=== PATIENT | male | born 1945 | race Caucasian/White ===

== ENCOUNTER → 2018-10-28 12:21 | Outpatient (CLI) | payer MEDICARE, OTHER | END | disposition home or self-care (01) | LOC: D.US 12:21 | PROVIDERS: ATTEND Internal Medicine Cardiovascular Disease | DX: I65.23 Occlusion and stenosis of bilateral carotid arteries (principal) ==

== ENCOUNTER 2018-11-08 07:04 | Inpatient (IN) | payer MEDICARE, OTHER ==
[2018-11-08] VITALS (38 sets, daily range): BP systolic 95–148; BP diastolic 45–79; BMI 32.3
[~2018-11-08] VITALS: Ht 177.8 cm; Wt 91.6 kg
[2018-11-08 07:39] LABS: INR 1.05 (0.85-1.17); PROTIME 13.2 SECONDS (11.6-15.0)
[2018-11-08 07:40] LABS: APTT 28.6 SECONDS (22.8-39.4)
[2018-11-08 07:42] LABS: HEMATOCRIT 43.1 % (42.0-54.0); HEMOGLOBIN 13.8 g/dL (13.5-17.5); MCH 27.8 pg (26.0-34.0); MCV 86.7 fL (80.0-100.0); MEAN PLATELET VOLUME 9.4 fL (7.4-10.4); RBC 4.97 10x6/uL (4.20-6.10); RDW 15.3 % (11.5-14.5); WBC 9.5 10x3/uL (4.8-10.8)
[2018-11-08 07:46] LABS: ALBUMIN 3.6 g/dL (3.4-5.0); ANION GAP 9.2 mmol/L (8-16); BILIRUBIN - TOTAL 0.43 mg/dL (0.2-1.3); CALCIUM 8.3 mg/dL (8.5-10.1); CARBON DIOXIDE 30.8 mmol/L (21.0-32.0); CREATININE - SERUM 1.3 mg/dL (0.6-1.3); PROTEIN - SERUM 6.6 g/dL (6.4-8.2)
[2018-11-08] MEDS ORDERED: NORVASC10 MG PO (07:59)
[2018-11-08] MEDS ORDERED: LISINOPRIL-HCT1 EAC8 PO (07:59)
[2018-11-08] MEDS ORDERED: PLAVIX75 MG PO (08:00)
[2018-11-08] MEDS ORDERED: LIPITOR80 MG PO (08:00)
[2018-11-08] MEDS ORDERED: AMBIEN10 MG PO (08:00)
[2018-11-08 08:37] LABS: APPEARANCE CLEAR (CLEAR); BACTERIA FEW /hpf (NONE SEEN); BILIRUBIN NEGATIVE (NEGATIVE); COLOR YELLOW (YELLOW); EPITHELIAL CELLS 0-5 /hpf (0-5); GLUCOSE NEGATIVE (NEGATIVE); KETONE NEGATIVE (NEGATIVE); NITRITE NEGATIVE (NEGATIVE); PROTEIN NEGATIVE (NEGATIVE); RED CELLS - URINE RARE /hpf (0-5); SPECIFIC GRAVITY 1.015 (1.005-1.020); UROBILINOGEN NORMAL (NORMAL); WHITE CELLS - URINE 0-5 /hpf (0-5)
[2018-11-08 08:38] LABS: MUCUS <1+ /lpf (NONE SEEN)
--- NOTE | 2018-11-08 14:09 | NUR ---
1343-REC'D TO CVICU. KAMI AT 0.5MCG/KG/MIN, 15.3CC/HR. PT FOLLOWS COMMAND AND ANSWERS QUESTION APPROPRIATELY. ALL MONITORING EQUIPMENT ATTACHED AND ALARMS SET. ICE TO L CAROTID NECK INCISION. CXR DONE.
--- NOTE | 2018-11-08 14:53 | OP ---
PATIENT NAME: THOR MANDEL MEDICAL RECORD: [id number] :41 [facility] ADMISSION DATE:11/08/18 SURGEON: CRAIG SORTO MD DATE OF OPERATION: 11/08/2018 SURGEON: Craig Sorto MD ANESTHESIA: General endotracheal, Dr. Garcia. OPERATION PERFORMED: Left carotid endarterectomy with patch angioplasty. PREOPERATIVE DIAGNOSES: Severe left internal carotid artery stenosis, total occlusion of the right internal carotid artery. POSTOPERATIVE DIAGNOSES: Severe left internal carotid artery stenosis, total occlusion of the right internal carotid artery. INDICATION FOR OPERATION: Compelling anatomy, severe left internal carotid artery stenosis. FINDINGS AT OPERATION: The left carotid artery stenosis greater than 80%. There were marked EEG changes with clamping of the carotid artery requiring a shunt. ESTIMATED BLOOD LOSS: Less than 100 cc. DESCRIPTION OF PROCEDURE: After informed consent, adequate preoperative medication evaluation, the patient was brought to the operating room, placed on table in supine position. After induction of general endotracheal anesthesia and application of appropriate monitoring devices, left neck and chest were prepped and draped in sterile field, utilizing Betadine scrub, alcohol, and Betadine solution. A Betadine-impregnated drape was also used. An oblique incision was made in the skin crease. Dissection carried down the fascia. Hemostasis maintained with electrocautery. Facial vein was identified and divided. Utilizing sharp dissection, the common carotid, internal and external carotid arteries were dissected free from surrounding structures, protecting the neurological structures. The patient was given a calculated dose of heparin, after 3 minutes, clamps were applied. The arteriotomy was made to rapidly and extended with Bruce scissors. The shunt was placed with good return of the EEG to normal. The artery then underwent endarterectomy sharply. Artery underwent extensive debridement and irrigation. Utilizing a vascular patch CorMatrix and a running 7-0 Prolene suture, the arteriotomy was closed with a patch angioplasty technique. All maneuvers to remove trapped air were performed. The shunt was removed. The last 3 stitches were placed and all maneuvers to remove trapped air were performed. The artery was secured and the clamps removed the EEG returned to normal. The patient was given a calculated dose of protamine to reverse the heparin. Hemostasis was achieved. A #7 Augustine-Dee drain was left in the depths of wound and brought through the base of the neck. Neck was again irrigated. Instrument count and sponge count were correct times 2. The neck was closed in layers utilizing 3-0 Vicryl on the platysma, 5-0 subcuticular Monocryl on the skin. Sterile dressings were applied. The patient tolerated the procedure well and transferred to cardiovascular recovery in satisfactory condition. TRANSINT:[id number] Voice Confirmation ID: [id number] DOCUMENT ID: [id number] OPERATIVE REPORT [id number] THOR MANDEL, CRAIG DAVIS at 1453 CC: [id number] DICTATION DATE: 11/08/18 1406 MOBILITY DEVELOPER: 11/08/18 1444 ADM IN [place] [id number] [place] [address]
--- NOTE | 2018-11-08 14:54 | NUR ---
NOTED PUPLES DIFFERENT SIZES UPON ARRIVAL TO CVICU. PT FOLLOWS COMMAND AND RETAIL SALES LEAD EQUAL, ORIENTED X 3. NO OTHER DEFICITS. REPORTED FINDING TO SUNDEEP. NO NEW ORDERS.
--- NOTE | 2018-11-08 19:30 | NUR ---
REC'D TO CARE, SENIOR TRAINER PER FLOWSHEET. PT ALERT AND ORIENTED, VSS. SEE NEURO ASSESSMENTS - WNL. IVFS INFUSING TO R DLSC, DSG C/D/I - SEE FLOWSHEET. WILL TITRATE KAMI GTT PER MD ORDERS. R RADIAL A-LINE WITH GOOD WAVE FORM NOTED. L NECK SITE C/D/I WITH MINIMAL SWELLING - ICE PACK APPLIED. CRITICORE DUBOSE PATENT WITH BLOOD-TINGED URINE NOTED. ALARMS ON AND C/L IN REACH.
--- NOTE | 2018-11-08 21:17 | NUR ---
NO VISITORS. NEURO WNL. I.S. = 2500 WITH GOOD COUGH. DENIES NEEDS. C/L IN REACH.
--- NOTE | 2018-11-08 23:34 | NUR ---
REASSESSMENT PER FLOWSHEET, NO ACUTE CHANGES. NEURO WNL. PT REPOSITIONED UP IN BED. INDEPENDENT WITH I.S. FRESH WATER AT BS. L NECK SITE C/D/I. ALARMS ON AND C/L IN REACH.
[2018-11-09] VITALS (32 sets, daily range): BP systolic 93–142; BP diastolic 43–81; Ht 177.8 cm; Wt 91.6 kg
--- NOTE | 2018-11-09 01:00 | NUR ---
R FA PIV D/C'D INTACT. PT GIVEN JELLO AND APPLESAUCE PER REQUEST. VSS. NEURO WNL. C/L IN REACH.
--- NOTE | 2018-11-09 03:20 | NUR ---
REASSESSMENT PER FLOWSHEET, NO ACUTE CHANGES. PT AWAKENS EASILY, NEURO WNL. L NECK SITE C/D/I. ALARMS ON AND C/L IN REACH.
--- NOTE | 2018-11-09 04:27 | NUR ---
GIVEN ASIF CRACKERS AND PEANUT BUTTER PER REQUEST. FRESH WATER AT BS. C/L IN REACH.
--- NOTE | 2018-11-09 05:15 | NUR ---
Brody MOORE AT BS. L EB DRAIN D/C'D INTACT. DSG APPLIED.
--- NOTE | 2018-11-09 07:36 | NUR ---
PT ALERT AND ORIENTED X 3. NO NEURO DEFICITS. ASSISTED WITH REPOSITIONING IN BED FOR BREAKFAST. SBP INCREASED ABOVE 140. ART LINE ZEROED AND EQUIPMENT ASSESSED. SBP ABOVE 140. NITRO STARTED ORDERED AT 5CC/HR/16.67MCG/MIN.
--- NOTE | 2018-11-09 08:22 | NUR ---
DR SORTO HERE ON ROUNDS.
--- NOTE | 2018-11-09 11:59 | NUR ---
DCD DUBOSE, URINAL AT BS. DCD ART LINE, PRESSURE HELD, NO BLEEDING TO R WRIST EXIT SITE. DSNG APPLIED. NITRO TITRATED OFF AND PT OOB AND AMB SALMON WITH PT. VSS. MEAL TRAY PROVIDED AND PT EATING LUNCH AT PRESENT. AT BS.
--- NOTE | 2018-11-09 15:19 | NUR ---
ASSISTED PT TO BATHROOM, PT AMB WITH OUT PROBLEMS.
--- NOTE | 2018-11-09 18:51 | NUR ---
PT AMB TO BATHROOM. STEADY GAIT. BATH AND LINENS CHANGED. PT BACK TO BED.
--- NOTE | 2018-11-09 19:30 | NUR ---
Received patient resting in bed with eyes open, assessment completed per flowsheet. Patient AO x4, answers appropriately/follows instructions. L anterior neck incision dressing CDI, no difficulties breathing/swallowing observed. S1/S2 noted NSR on telemetry with HR 69, rythmic and regular. Breathing is even/unlabored on room air with o2 sat 95%, lung sounds clear throughout. Abdomen is soft/round with bowel sounds active x4, non-tender. All pulses palpable wtih cap refill < 3 sec, skin warm/dry. Patient ambulates without assist, gait is upright/steady. Denies pain or other needs at this time, see flwosheet for details. All VSS and will continue to monitor.
--- NOTE | 2018-11-09 21:10 | NUR ---
Patient resting in bed with eyes open, denies pain or other needs at this time. Discussed treatment plan/current status with all questions answered to satisfaction, will continue to monitor.
--- NOTE | 2018-11-09 23:10 | NUR ---
Reassessment completed per flowsheet, no changes from previous assessment. L anterior neck incision dressing CDI, no difiiculties breathing/swallowing observed. S1/S2 noted NSR on telemetry with HR 69, rythmic and regular. Breathing is even/unlabored on room air with O2 sat 96%, lung sounds clear throughout. All pulses palpable with cap refill < 3 sec, skin warm/dry. Denies pain or other needs at this time, see flowsheet for details. All VSS and will continue to monitor.
[2018-11-10] VITALS (10 sets, daily range): BP systolic 127–150; BP diastolic 59–72
--- NOTE | 2018-11-10 01:00 | NUR ---
Patient sleeping in bed with eyes closed, no s/s of distress at this time. L anterior neck incision dressing CDI, no difficulty breathing/swallowing noted. No further needs and will continue to monitor.
--- NOTE | 2018-11-10 03:09 | NUR ---
Reassessment completed per flowsheet, no changes from previous assessment. L anterior neck incision dressing CDI, no difficulties breathing observed. S1/S2 noted NSR on telemetry with HR 69, rythmic and regular. Breathing is even/unlabored on room air with O2 sat 96%, lung sounds clear throughout. All pulses palpable with cap refill < 3 sec, skin warm/dry. Denies pain or other needs at this time, see flowsheet for details. All VSS and will continue to monitor.
--- NOTE | 2018-11-10 05:10 | NUR ---
Patient resting in bed with eyes closed, no s/s of distress at this time. Patient transferred to chair, denies pain or other needs and will continue to monitor.
--- NOTE | 2018-11-10 07:50 | NUR ---
PT UP TO CHAIR, AMB TO BR W/O ASST. STEADY GAIT. BREAKFAST TRAY SERVED AND PT EATING W/O PROBLEMS.
--- NOTE | 2018-11-10 09:29 | NUR ---
PT AMB WITH PT ENTIRE LENGTH OF SALMON WITH NO DIFFICULTY.
[2018-11-10] MEDS ORDERED: ASPIRIN81 MG PO (11:05)
[2018-11-10] MEDS ORDERED: ULTRAM50 MG PO (11:06)
--- NOTE | 2018-11-10 13:00 | NUR ---
CVL RT CHEST DCD. PRESSURE HELD, DSNG APPLIED. DC INSTRUCTIONS REVIEWED WITH PT AND HIS . WILL DC HOME ORDERED.
--- NOTE | 2018-11-10 13:09 | MORECARE ---
CASE MANAGEMENT DISCHARGE SUMMARY PATIENT: THOR MANDEL UNIT: [id number] ADM DATE: 11/08/18 AGE: 73 : 43 SEX: M ROOM/BED: [facility] AUTHOR: HUMBLE ESTES PHYSICIAN: REFERRING PHYSICIAN: JORDEN SORTO MD DATE OF SERVICE: 11/10/18 Discharge Plan Patient Name: THOR MANDEL [facility] [facility] 1945 Planned Disposition: Home Anticipated Discharge Date: Discharge Date: Expected LOS: Initial Reviewer: [email or web address] Initial Review Date: 11/09/2018 Generated: 11/10/18 2:09 pm Patient Name: THOR MANDEL Page [phone] at 1309 All edits/amendments must be made on the electronic document DICTATION DATE: 11/10/18 1308 RN TRIAGE: DIANNE 11/10/18 1308 RPT#: [id number] DC DATE: STATUS: ADM IN [facility] [address] [place] [address] END OF REPORT
--- NOTE | 2018-11-10 13:17 | MORECARE ---
CASE MANAGEMENT DISCHARGE SUMMARY PATIENT: THOR MANDEL UNIT: [id number] ADM DATE: 11/08/18 AGE: 73 : 43 SEX: M ROOM/BED: D.[facility] AUTHOR: MEERADOC PHYSICIAN: REFERRING PHYSICIAN: JORDEN SORTO MD DATE OF SERVICE: 11/10/18 Discharge Plan Patient Name: THOR MANDEL Facility: [facility]:[place] : 1945 Planned Disposition: Home Anticipated Discharge Date: Discharge Date: Expected LOS: Initial Reviewer: [email or web address] Initial Review Date: 11/09/2018 Generated: 11/10/18 2:17 pm Comments DCP- Discharge Planning Updated by [email or web address]: Isabel Kline on 11/10/18 12:[address] Patient Name: THOR MANDEL Admission Status: Elective Accout number: [id number] Admission Date: 11-08-2018 : 1945 Admission Diagnosis: Attending: JORDEN SORTO Current LOS: 2 Anticipated DC Date: Planned Disposition: Home Primary Insurance: MEDICARE A & B Discharge Planning Comments: CM met with patient and spouse (Jalen) at bedside after explaining CM role and obtaining verbal consent. Patient lives at home with his Jalen and plans to return there upon discharge. Patient feels this would be a safe discharge. CM discussed availability / needs of home health and medical equipment. Patient denies any discharge needs at this time. Patient states he will have his drive him home upon discharge. CM will continue to follow and assist as needed with discharge planning / needs. Mountain Guide: Isabel Kline DCPIA - Discharge Planning Initial Assessment Updated by [email or web address]: Isabel Kline on 11/10/18 1:10 pm * Is the patient Alert and Oriented? Yes * How many steps to enter\exit or inside your home? * PCP YOKO BUCKNER * Pharm[facility] * Preadmission Environment Home with Family * ADLs Independent * Equipment None * List name and contact numbers for known caregivers / representatives who currently or will assist patient after discharge: JALEN MANDEL - SPOUSE - [phone] * Verbal permission to speak to the caregivers and representatives has been obtained from the patient. Yes * Community resources currently utilized None * Additional services required to return to the preadmission environment? No * Can the patient safely return to the preadmission environment? Yes * Has this patient been hospitalized within the prior 30 days at any hospital? Yes Last DP export: 11/10/18 12:09 pm Patient Name: THOR MANDEL Page [phone] at 1317 All edits/amendments must be made on the electronic document DICTATION DATE: 11/10/181316 HUMAN RESOURCES BENEFITS COORDINATOR: DIANNE 11/10/181316 RPT#: [id number] DC DATE: STATUS: ADM IN [facility] [address] [place] [address] END OF REPORT
--- NOTE | 2018-11-11 15:08 | MORECARE ---
CASE MANAGEMENT DISCHARGE SUMMARY PATIENT: THOR MANDEL UNIT: [id number] ADM DATE: 11/08/18 AGE: 73 : 43 SEX: M [facility] AUTHOR: MEERA,DOC PHYSICIAN: REFERRING PHYSICIAN: JORDEN SORTO MD DATE OF SERVICE: 11/11/18 Discharge Plan Patient Name: THOR MANDEL Facility: [facility]:[place] : 1945 Planned Disposition: Home Anticipated Discharge Date: Discharge Date: 11/10/2018 Expected LOS: Initial Reviewer: [email or web address] Initial Review Date: 11/09/2018 Generated: 11/11/18 4:07 pm Comments DCP- Discharge Planning Updated by [email or web address]: Isabel Kline on 11/10/18 12:[address] Patient Name: THOR MANDEL Admission Status: Elective Accout number: [id number] Admission Date: 11-08-2018 : 1945 Admission Diagnosis: Attending: JORDEN SORTO Current LOS: 2 Anticipated DC Date: Planned Disposition: Home Primary Insurance: MEDICARE A & B Discharge Planning Comments: CM met with patient and spouse (Jalen) at bedside after explaining CM role and obtaining verbal consent. Patient lives at home with his Jalen and plans to return there upon discharge. Patient feels this would be a safe discharge. CM discussed availability / needs of home health and medical equipment. Patient denies any discharge needs at this time. Patient states he will have his drive him home upon discharge. CM will continue to follow and assist as needed with discharge planning / needs. Power Sewing Machine Operator: Isabel Kline DCPIA - Discharge Planning Initial Assessment Updated by [email or web address]: Isabel Kline on 11/10/18 1:10 pm * Is the patient Alert and Oriented? Yes * How many steps to enter\exit or inside your home? * PCP YOKO BUCKNER * Pharm[facility] [address] * Preadmission Environment Home with Family * ADLs Independent * Equipment None * List name and contact numbers for known caregivers / representatives who currently or will assist patient after discharge: JALEN MANDEL - SPOUSE - [phone] * Verbal permission to speak to the caregivers and representatives has been obtained from the patient. Yes * Community resources currently utilized None * Additional services required to return to the preadmission environment? No * Can the patient safely return to the preadmission environment? Yes * Has this patient been hospitalized within the prior 30 days at any hospital? Yes Last DP export: 11/10/18 12:17 pm Patient Name: THOR MANDEL Page 15637 at 1508 All edits/amendments must be made on the electronic document DICTATION DATE: 11/11/18 1507 STATION WORKER: DM 11/11/18 1507 RPT#: [id number] DC DATE:11/10/18 STATUS: DIS IN [facility] [address] [place] [address] END OF REPORT
== END 2018-11-10 13:30 | disposition home or self-care (01) | DRG 39 ==
LOC: D.CVICU 07:04 → D.SDCHOLD 07:04 → D.CVICU 11:08
PROVIDERS: ADMIT Internal Medicine Cardiovascular Disease; ATTEND Internal Medicine Cardiovascular Disease
PROC: 03UL0JZ Supplement Left Internal Carotid Artery with Synthetic Substitute, Open Approach (ICD-10-PCS; 2018-11-08)
PROC: 03CL0ZZ Extirpation of Matter from Left Internal Carotid Artery, Open Approach (ICD-10-PCS; principal; 2018-11-08 11:00)
DX: I65.23 Occlusion and stenosis of bilateral carotid arteries (principal); I10 Essential (primary) hypertension; E78.5 Hyperlipidemia, unspecified; Z85.118 Personal history of other malignant neoplasm of bronchus and lung; Z86.73 Personal history of transient ischemic attack (TIA), and cerebral infarction without residual deficits

== ENCOUNTER 2019-09-30 08:25 | Inpatient (IN) | payer MEDICARE, OTHER ==
[~2019-09-30] VITALS: Ht 177.8 cm; Wt 111.3 kg
[~2019-09-30 08:25] MED LIST: AMBIEN10 MG PO; ASPIRIN81 MG PO; LIPITOR80 MG PO; LISINOPRIL-HCT1 EAC8 PO; NORVASC10 MG PO; PLAVIX75 MG PO; ULTRAM50 MG PO
[2019-10-10] VITALS (15 sets, daily range): BP systolic 124–151; BP diastolic 61–86; Ht 177.8 cm; Wt 111.3 kg
[2019-10-10] MEDS ORDERED: JAKAFI5 MG PO (09:58)
[2019-10-10] MEDS ORDERED: FERROUS SULFAT325 MG PO (10:01)
--- NOTE | 2019-10-10 10:47 | NUR ---
PT RECIVED TO ROOM VSS PRESENT, HX AND MED REC COMPLETED, WRITTEN ORDERS PER DR PRITCHETT, DR TIJERINA NURSE PATSY PRESENT AND SPOKE WITH PT AND
--- NOTE | 2019-10-10 10:49 | NUR ---
PT ARRIVED IN THE UNIT. PT HOOKED TO ICU MONITORS. VSS. PT ORIENTED TO THE UNIT AND RULES. IV STARTED IN THE LEFT FA. NO S/SX OF INFILTRATION NOTED. CALL LIGHT IN REACH. WILL CONT POC.
[2019-10-10 11:12] LABS: BASOPHILS 1.5 % (0-2); EOSINOPHILS 1.5 % (0-7); HEMATOCRIT 34.5 % (42.0-54.0); HEMOGLOBIN 10.9 g/dL (13.5-17.5); IMMATURE GRANULOCYTES 1.3 % (0-5); LYMPHOCYTES 17.7 % (15-50); MCH 29.5 pg (26.0-34.0); MCHC 31.6 g/dL (31.0-37.0); MCV 93.2 fL (80.0-100.0); MEAN PLATELET VOLUME 9.3 fL (7.4-10.4); MONOCYTES 10.4 % (2-11); NEUTROPHILS 67.6 % (40-80); PLATELET COUNT 496 10x3/uL (130-400); RDW 13.8 % (11.5-14.5); WBC 7.8 10x3/uL (4.8-10.8)
[2019-10-10 11:29] LABS: ALBUMIN 3.5 g/dL (3.4-5.0); ANION GAP 8.5 mmol/L (8-16); APTT 28.7 SECONDS (22.8-39.4); BILIRUBIN - TOTAL 0.23 mg/dL (0.2-1.3); CALCIUM 8.2 mg/dL (8.5-10.1); CARBON DIOXIDE 25.5 mmol/L (21.0-32.0); CREATININE - SERUM 1.3 mg/dL (0.6-1.3); INR 1.03 (0.85-1.17); PROTEIN - SERUM 6.2 g/dL (6.4-8.2); PROTIME 13.5 SECONDS (11.6-15.0)
--- NOTE | 2019-10-10 17:02 | NUR ---
PT RESTING IN BED. ATE DINNER TRAY. NO COMPLAINTS NOTED. WILL CONTINUE TO MONITOR
--- NOTE | 2019-10-10 17:14 | NUR ---
DR PRITCHETT PAGED REGARDING PT BP. NEW ORDER RECEIVED.
--- NOTE | 2019-10-10 18:27 | MORECARE ---
CASE MANAGEMENT DISCHARGE SUMMARY PATIENT: THOR MANDEL UNIT: [id number] ADM DATE: 10/10/19 AGE: 74 : 43 SEX: M ROOM/BED: D[facility] AUTHOR: MEERA,DOC PHYSICIAN: REFERRING PHYSICIAN: MORIAH PRITCHETT MD DATE OF SERVICE: 10/10/19 Discharge Plan Patient Name: THOR MANDEL Facility: [facility]:[place] : 1945 Planned Disposition: Anticipated Discharge Date: Discharge Date: Expected LOS: Initial Reviewer: [email or web address] Initial Review Date: 10/10/2019 Generated: 10/10/19 7:26 pm Comments DCP- Discharge Planning Updated by [email or web address]: Isabel Kline on 10/10/19 5:[address] Patient Name: THOR MANDEL Admission Status: Elective Accout number: [id number] Admission Date: 10-10-2019 : 1945 Admission Diagnosis: Attending: MORIAH PRITCHETT Current LOS: 1 Anticipated DC Date: Planned Disposition: Primary Insurance: MEDICARE A & B Discharge Planning Comments: CM met with patient at bedside after explaining CM role and obtaining verbal consent. Patient lives at home with his Jalen where he is independent with his care and plans to return there upon discharge. Patient feels this would be a safe discharge. CM discussed availability / needs of home health and medical equipment. Patient denies any discharge needs at this time. Patient states he will have his family drive him home upon discharge. CM will continue to follow and assist as needed with discharge planning / needs. Underwater Hunter Trapper: Isabel Kline DCPIA - Discharge Planning Initial Assessment Updated by [email or web address]: Isabel Kline on 10/10/19 6:24 pm * Is the patient Alert and Oriented? Yes * How many steps to enter\exit or inside your home? * PCP BUCKNER * [facility] * Preadmission Environment Home with Family * ADLs Independent * Equipment None * List name and contact numbers for known caregivers / representatives who currently or will assist patient after discharge: JALEN MANDEL - [facility] - [phone] * Verbal permission to speak to the caregivers and representatives has been obtained from the patient. Yes * Community resources currently utilized None * Additional services required to return to the preadmission environment? No * Can the patient safely return to the preadmission environment? Yes * Has this patient been hospitalized within the prior 30 days at any hospital? No Patient Name: THOR MANDEL Page [phone] at 1827 All edits/amendments must be made on the electronic document DICTATION DATE: 10/10/191825 GLASS ETCHER: DIANNE 10/10/191825 RPT#: [id number] DC DATE: STATUS: ADM IN [facility] [address] [place] [address] END OF REPORT
--- NOTE | 2019-10-10 19:30 | NUR ---
PT VOICED CONCERNS OF RECEIVING BLOOD PRESSURE MEDICATION TO LOWER SBP, PT STATED " IF MY BLOOD PRESSURE FALLS BELOW 150 ON TOP NUMBER (SBP) THEN I WONT BE HERE TOMORROW", DISCUSSED WITH PT WHY HE FELT THIS WAY, PT STATED " IF MY BLOOD PRESSURE DROPPES LOW I LOSE VISION IN MY RIGHT EYE FROM PREVIOUS STROKE" DISCUSSED WITH PT ABOUT CONCERNS AND WILL NOTIFY PHYSICIAN IF PT HAS FURTHER CONCERNS, PT CALM AND DENIES NEEDS AT THIS TIME, VSS, WILL CONTINUE TO MONITOR
--- NOTE | 2019-10-10 20:30 | NUR ---
PT OUT OF BED TO BATHROOM WITH MINIMAL ASSIST, PT NOTED VOID IN URINAL AND FLUSHED PRIOR TO NURSE ASSESSING, PT AMBULATED BACK TO BED AND REPOSITIONED FOR COMFORT, VSS, PT DENIES PAIN OR NEEDS AT THIS TIME, CALL LIGHT IN REACH, BED ALARM ON, PT CALM LAUGHING AND CONVERSATING WITH NURSE ABOUT PRIOR WORK EXPERIENCES, NO FURTHER AT THIS TIME, WILL CONTINUE TO MONITOR
--- NOTE | 2019-10-10 23:00 | NUR ---
REASSESSMENT COMPLETE PER FLOW SHEET, NO ACUTE CHANGES FROM PRIOR ASSESSMENT, PT AWAKE AND ALERT, DENIES PAIN OR NEEDS AT THIS TIME, VSS, CALL LIGHT IN REACH, BED ALARM ON, REPOSITIONED FOR COMFORT, WILL CONTINUE TO MONITOR
[2019-10-11] VITALS (24 sets, daily range): BP systolic 111–176; BP diastolic 56–85
--- NOTE | 2019-10-11 00:30 | NUR ---
PT OUT OF BED TO BATHROOM, PT FLUSHED TOILET BEFORE NURSE COULD ASSESS, AMBULATED BACK TO BED, REPOSITIONED FOR COMFORT, VSS, DENIES PAIN OR NEEDS AT THIS TIME, WILL CONTINUE TO MONITOR
--- NOTE | 2019-10-11 02:00 | NUR ---
PT SLEEPING COMFORTABLY, INTERMITTENT PERIODS OF SPO2% DECREASING ON CM, POSSIBLE D/T SLEEP APNEA, SpO2% RETURNS TO NORMAL WITHOUT INTERVENTION, WILL CONTINUE TO MONITOR, OTHER VSS
--- NOTE | 2019-10-11 03:00 | NUR ---
PT OUT OF BED TO BATHROOM, CLEAR YELLOW VOID NOTED, AMBULATED BACK TO BED WITH MINIMAL ASSIST, REPOSITIONED FOR COMFORT, HOB ELEVATED, NSR @ 76bpm ON CM, OTHER VSS, DENIES PAIN AT THIS TIME, LARGE CUP ICE WATER GIVEN PER REQUEST, REASSESSMENT COMPLETED PER FLOW SHEET, NO ACUTE CHANGES FROM PRIOR ASSESSMENT, CALL LIGHT IN REACH, BED ALARM ON, WILL CONTINUE TO MONITOR
--- NOTE | 2019-10-11 04:25 | NUR ---
PT OUT OF BED TO BATHROOM, PT FLUSHED TOILET PRIOR TO RN ASSESSING, AMBULATED BACK IN BED AND REPOSITIONED FOR COMFORT, VSS, DENIES PAIN OR NEEDS AT THIS TIME, CALL LIGHT IN REACH, BED ALARM ON, WILL CONTINUE TO TR
[2019-10-11 07:07] LABS: ALBUMIN 3.1 g/dL (3.4-5.0); ANION GAP 14.2 mmol/L (8-16); BILIRUBIN - TOTAL 0.17 mg/dL (0.2-1.3); CALCIUM 7.8 mg/dL (8.5-10.1); CARBON DIOXIDE 24.7 mmol/L (21.0-32.0); CREATININE - SERUM 1.3 mg/dL (0.6-1.3); POTASSIUM - SERUM 3.9 mmol/L (3.5-5.1); PROTEIN - SERUM 5.7 g/dL (6.4-8.2)
[2019-10-11 07:59] LABS: HEMATOCRIT 33.1 % (42.0-54.0); HEMOGLOBIN 10.6 g/dL (13.5-17.5); MCH 29.9 pg (26.0-34.0); MCV 93.5 fL (80.0-100.0); MEAN PLATELET VOLUME 10.1 fL (7.4-10.4); PLATELET COUNT 411 10x3/uL (130-400); RBC 3.54 10x6/uL (4.20-6.10); RDW 13.5 % (11.5-14.5); WBC 6.7 10x3/uL (4.8-10.8)
[2019-10-11 09:38] LABS: BASOPHILS 1 % (0-2); EOSINOPHILS 2 % (0-7); LYMPHOCYTES 26 % (15-50); MONOCYTES 11 % (2-11); NEUTROPHILS 59 % (40-80); PLATELET ESTIMATE INCREASED; ROULEAUX OCC
--- NOTE | 2019-10-11 20:56 | NUR ---
PT OUT OF BED TO BATHROOM, PT URINATED AND FLUSHED TOILET PRIOR TO RN ASSESSING OUTPUT, PT STATED VOID "CLEAR YELLOW URINE", AMBULATED BACK TO BED AND REPOSITIONED FOR COMFORT, VSS, DENIES PAIN, BED ALARM ON, CALL LIGHT IN REACH, LARGE CUP ICE WATER GIVEN PER REQUEST, NO FURTHER NEEDS AT THIS TIME, WILL CONTINUE TO MONITOR
--- NOTE | 2019-10-11 23:30 | NUR ---
PT OUT OF BED TO BATHROOM, CLEAR YELLOW URINE NOTED, PT AMBULATED BACK TO BED AND REPOSITIONED FOR COMFORT, VSS, PT DENIES PAIN OR NEEDS AT THIS TIME, CALL LIGHT IN REACH, BED ALARM ON, WILL CONTINUE TO MONITOR
[2019-10-12] VITALS (23 sets, daily range): BP systolic 102–155; BP diastolic 47–99
[2019-10-12 05:20] LABS: BASOPHILS 1.1 % (0-2); EOSINOPHILS 2.3 % (0-7); HEMOGLOBIN 10.2 g/dL (13.5-17.5); IMMATURE GRANULOCYTES 0.9 % (0-5); LYMPHOCYTES 20.1 % (15-50); MCH 29.1 pg (26.0-34.0); MCHC 30.9 g/dL (31.0-37.0); MEAN PLATELET VOLUME 9.3 fL (7.4-10.4); MONOCYTES 11.7 % (2-11); NEUTROPHILS 63.9 % (40-80); PLATELET COUNT 480 10x3/uL (130-400); RBC 3.51 10x6/uL (4.20-6.10); RDW 13.7 % (11.5-14.5); WBC 7.4 10x3/uL (4.8-10.8)
--- NOTE | 2019-10-12 05:30 | NUR ---
CHG BATH COMPLETED WITH LINEN AND YELLOW GOWN PLACED, PARESH HOSE AND SCD'S PLACED ON BLE, REPOSITIONED IN BED FOR COMFORT, VSS
[2019-10-12 05:46] LABS: ANION GAP 11.5 mmol/L (8-16); BILIRUBIN - TOTAL 0.17 mg/dL (0.2-1.3); CALCIUM 7.4 mg/dL (8.5-10.1); CARBON DIOXIDE 25.4 mmol/L (21.0-32.0); CREATININE - SERUM 1.4 mg/dL (0.6-1.3); POTASSIUM - SERUM 3.9 mmol/L (3.5-5.1); PROTEIN - SERUM 5.6 g/dL (6.4-8.2)
--- NOTE | 2019-10-12 06:30 | NUR ---
CONSENTS SIGNED AND PLACED IN CHART, PT AAOx4, DENIES PAIN OR NEEDS AT THIS TIME, VSS
[2019-10-12 09:36] LABS: INR 1.02 (0.85-1.17); PROTIME 13.3 SECONDS (11.6-15.0)
--- NOTE | 2019-10-12 19:00 | NUR ---
SHIFT ASSESSMENT COMPLETED, PT CARE ASSUMED, MONITORS ON AND WORKING, VITALS STABLE, PT AWAKE AND ALERT, NO SIGNS/SYMPTOMS OF PAIN DISCOMFORT NOTED. CALL LIGHT WITHIN REACH, SEE FLOW SHEET FOR FURTHER DETAILS. WILL CONTINUE TO OBSERVE.
--- NOTE | 2019-10-12 21:00 | NUR ---
PT UP AD ROBBIN, PT TOLERATED WELL, MONITORS ON AND WORKING, VITALS STABLE. CALL LIGHT WITHIN REACH, WILL CONTINUE TO OBSERVE.
--- NOTE | 2019-10-12 23:00 | NUR ---
PT SITTING UP IN BED, PT AWAKE AND ALERT, NO SIGNS/SYMPTOMS OF PAIN OR DISCOMFORT NOTED AT THIS TIME, SEE FLOW SHEET FOR FURTHER DETAILS. WILL CONTINUE TO OBSERVE.
[2019-10-13] VITALS (11 sets, daily range): BP systolic 105–157; BP diastolic 54–82
--- NOTE | 2019-10-13 03:00 | NUR ---
NO CHANGES, MONITORS ON AND WORKING, VITALS STABLE, CALL LIGHT WITHIN REACH SE FLOW SHEET FOR FURTHER DETAILS, WILL CONTINUE TO OBSERVE.
[2019-10-13 06:34] LABS: EOSINOPHILS 1.7 % (0-7); HEMATOCRIT 33.8 % (42.0-54.0); HEMOGLOBIN 10.7 g/dL (13.5-17.5); IMMATURE GRANULOCYTES 1.2 % (0-5); LYMPHOCYTES 19.6 % (15-50); MCH 29.7 pg (26.0-34.0); MCHC 31.7 g/dL (31.0-37.0); MCV 93.9 fL (80.0-100.0); MEAN PLATELET VOLUME 9.3 fL (7.4-10.4); MONOCYTES 12.2 % (2-11); NEUTROPHILS 64.3 % (40-80); PLATELET COUNT 394 10x3/uL (130-400); RDW 13.4 % (11.5-14.5)
[2019-10-13 06:55] LABS: ANION GAP 10.8 mmol/L (8-16); BILIRUBIN - TOTAL 0.25 mg/dL (0.2-1.3); CALCIUM 7.8 mg/dL (8.5-10.1); CARBON DIOXIDE 26.2 mmol/L (21.0-32.0); CREATININE - SERUM 1.3 mg/dL (0.6-1.3); PROTEIN - SERUM 5.7 g/dL (6.4-8.2)
--- NOTE | 2019-10-13 07:27 | NUR ---
SHIFT REPORT RECEIVED. AA&OX 4. DENIES HAVING PAIN. ON ROOM AIR. HAS L-FOREARM 20G PIV WITH HEPARIN INFUSING AT 1300UNITS/HR SET RATE. SHIFT ASSESSEMNT CHARTED IN FLOWSHEET. CALL LIGHT IN REACH. WILL CONTINUE TO MONITOR.
--- NOTE | 2019-10-13 08:20 | NUR ---
SPOKE WITH KENYA ARREDONDO RN REGARDING ASPIRIN, PLAVIX AND HEPARIN. OKAY TO GIVE ASPIRIN AND PLAVIX AT 9. TURN OFF HEPARIN DRIP AT 10.
--- NOTE | 2019-10-13 10:04 | NUR ---
HEPARIN DRIP DC'D AT THIS TIME. LEFT FOREARM PIV FLUSHED AND SALINE LOCKED. PT RESTING COMFORTABLY. WILL CONTINUE TO MONITOR.
--- NOTE | 2019-10-13 11:48 | NUR ---
MEAL TRAY DELIVERED TO ROOM. PT REFUSING TO EAT AT THIS TIME. SPOUSE AT BEDSIDE. NO FURTHER NEEDS. WILL CONTINUE TO MONITOR.
--- NOTE | 2019-10-13 13:08 | NUR ---
DISCHARGE INTRUCTIONS REVIEWED WITH PT. SPOUSE AT BEDSIDE. L-FOREARM 20GPIV DC'D WITH CATHETER TIP INTACT. HOME MEDICATION "JACKAFI" GIVEN BACK TO PATIENT. PT AMBULATED TO PERSONAL VEHICLE. PERSONAL BELONINGS SENT WITH PATIENT.
--- NOTE | 2019-10-13 20:03 | MORECARE ---
CASE MANAGEMENT DISCHARGE SUMMARY PATIENT: THOR MANDEL UNIT: [id number] ADM DATE: 10/10/19 AGE: 74 : 41 SEX: M [facility] AUTHOR: MEERA,DOC PHYSICIAN: REFERRING PHYSICIAN: OMRIAH PRITCHETT MD DATE OF SERVICE: 10/13/19 Discharge Plan Patient Name: THOR MANDEL Facility: [facility]:[place] : 1945 Planned Disposition: Anticipated Discharge Date: Discharge Date: 10/13/2019 Expected LOS: Initial Reviewer: [email or web address] Initial Review Date: 10/10/2019 Generated: 10/13/19 9:02 pm Comments DCP- Discharge Planning Updated by [email or web address]: Isabel Kline on 10/10/19 5:[address] Patient Name: THOR MANDEL Admission Status: Elective Accout number: [id number] Admission Date: 10-10-2019 : 1945 Admission Diagnosis: Attending: MORIAH PRITCHETT Current LOS: 1 Anticipated DC Date: Planned Disposition: Primary Insurance: MEDICARE A & B Discharge Planning Comments: CM met with patient at bedside after explaining CM role and obtaining verbal consent. Patient lives at home with his Jalen where he is independent with his care and plans to return there upon discharge. Patient feels this would be a safe discharge. CM discussed availability / needs of home health and medical equipment. Patient denies any discharge needs at this time. Patient states he will have his family drive him home upon discharge. CM will continue to follow and assist as needed with discharge planning / needs. Naturopath: Isabel Kline DCPIA - Discharge Planning Initial Assessment Updated by [email or web address]: Isabel Kline on 10/10/19 6:24 pm * Is the patient Alert and Oriented? Yes * How many steps to enter\exit or inside your home? * PCP [facility] * Pharmacy [facility] - [facility] * Preadmission Environment Home with Family * ADLs Independent * Equipment None * List name and contact numbers for known caregivers / representatives who currently or will assist patient after discharge: JALEN MANDEL - [facility] - [phone] * Verbal permission to speak to the caregivers and representatives has been obtained from the patient. Yes * Community resources currently utilized None * Additional services required to return to the preadmission environment? No * Can the patient safely return to the preadmission environment? Yes * Has this patient been hospitalized within the prior 30 days at any hospital? No Coverage Notice Reviewer: [email or web address] He Kline Notice Issued Date-Time: 10/13/2019 15:00 Notice Type: IM Discharge Notice Notice Delivered To: Patient Relationship to Patient: Self Manager Process Name: Delivery Method: HAND - Hand Delivered Ashley Days: Prior Verbal Notification: Recipient Understood Notice: Yes Recipient Signature: Yes Med Rec Note Co-signed by Attending: Coverage Notice Comment: Last DP export: 10/10/19 5:27 pm Patient Name: THOR MANDEL Page [id number] at 2002 All edits/amendments must be made on the electronic document DICTATION DATE: 10/13/192001 UNDER PRESSER: DIANNE 10/13/192001 RPT#: [id number] DC DATE:10/13/19 STATUS: DIS IN [facility] [address] [place] [address] END OF REPORT
== END 2019-10-13 13:09 | disposition home or self-care (01) | DRG 700 ==
LOC: D.CVICU 10-10 09:41 → EDSTATUS 10-12 09:00 → D.RAD 10-12 09:00 → D.CVICU 10-13 13:09
PROVIDERS: ADMIT Specialist; ATTEND Specialist
PROC: 0TB03ZX Excision of Right Kidney, Percutaneous Approach, Diagnostic (ICD-10-PCS; principal; 2019-10-12 09:45)
DX: N28.89 Other specified disorders of kidney and ureter (principal); I10 Essential (primary) hypertension; E78.5 Hyperlipidemia, unspecified; Z85.118 Personal history of other malignant neoplasm of bronchus and lung; Z86.73 Personal history of transient ischemic attack (TIA), and cerebral infarction without residual deficits

== ENCOUNTER → 2020-02-14 10:29 | Outpatient (CLI) | payer MEDICARE, OTHER ==
[2019-10-10 12:56] VITALS: BMI 33.7
[~2020-02-14 10:29] MED LIST changes: +FERROUS SULFAT325 MG PO; +JAKAFI5 MG PO
== END | disposition home or self-care (01) ==
LOC: D.US 11-28 11:00
PROVIDERS: ATTEND Internal Medicine Cardiovascular Disease
DX: I65.23 Occlusion and stenosis of bilateral carotid arteries (principal)